=== PATIENT | male | born 1985 | race Caucasian/White ===

== ENCOUNTER → 2017-05-24 | Emergency (ER) | payer SELFPAY ==
[~2017-05-24] VITALS: Ht 177.8 cm; Wt 88.5 kg
[~2017-05-24] MED LIST: CEPH500T PO; CIPR500T4; HYDR-3816; HYDR-3816 PO; HYDROmorphone (DILAUDID) 2 MG/ML VIAL IVP STA; KETOROLAC 30 MG/ML VIAL IVP STA; NS IV 1000 ML 1,000 ML IV ONE; PHENAZOPYRIDINE 100 MG (PYRIDIUM) TABLET PO ONE
[2017-05-24 08:52] LABS: BASOPHILS % (AUTO) 0 % (0-10); EOSINOPHILS # (AUTO) 0.2 10^3/uL (0.0-0.3); EOSINOPHILS % (AUTO) 2 % (0-10); LYMPHOCYTES % (AUTO) 25 % (12-44); MEAN CORPUSCULAR HEMOGLOBIN 30 PG (25-34); MEAN CORPUSCULAR HGB CONC 33 G/DL (32-36); MEAN CORPUSCULAR VOLUME 91 FL (80-99); MEAN PLATELET VOLUME 10.2 FL (7.4-10.4); MONOCYTES # (AUTO) 1.4 X 10^3 (0.0-1.0); MONOCYTES % (AUTO) 12 % (0-12); NEUTROPHILS # (AUTO) 7.3 X 10^3 (1.8-7.8); NEUTROPHILS % (AUTO) 61 % (42-75); PLATELET COUNT 339 10^3/uL (130-400); RED BLOOD COUNT 5.06 10^6/uL (4.35-5.85); RED CELL DISTRIBUTION WIDTH 13.4 % (10.0-14.5)
[2017-05-24 09:15] LABS: BILIRUBIN,URINE NEGATIVE (NEGATIVE); KETONES,URINE NEGATIVE (NEGATIVE); LEUKOCYTE ESTERASE ,URINE NEGATIVE (NEGATIVE); NITRITE,URINE NEGATIVE (NEGATIVE); PH,URINE 7 (5-9); PROTEIN,URINE NEGATIVE (NEGATIVE); UROBILINOGEN,URINE NORMAL (NORMAL)
[2017-05-24 09:16] LABS: ALANINE AMINOTRANSFERASE 23 U/L (0-55); ANION GAP 11 MMOL/L (5-14); ASPARTATE AMINO TRANSFERASE 17 U/L (5-34); BILIRUBIN,TOTAL 0.2 MG/DL (0.1-1.0); BLOOD UREA NITROGEN 14 MG/DL (7-18); BUN/CREATININE RATIO 17; CALCIUM 9.1 MG/DL (8.5-10.1); CARBON DIOXIDE 23 MMOL/L (21-32); CHLORIDE 104 MMOL/L (98-107); CREATININE SERUM 0.81 MG/DL (0.60-1.30); GFR ESTIMATED > 60; GLUCOSE 90 MG/DL (70-105); POTASSIUM 3.9 MMOL/L (3.6-5.0); SODIUM 138 MMOL/L (135-145); TOTAL PROTEIN 7.1 GM/DL (6.4-8.2)
--- NOTE | 2017-05-24 09:18 | ED GU-Male ---
General Chief Complaint: Abdominal/GI Problems Stated Complaint: LT LOWER BACK PAIN Nursing Triage Note: ARRIVED VIA AMB TO ROOM 07. COMPLAINS OF SEVERE LEFT FLANK PAIN STARTING THIS AM WHEN HE WOKE UP. HX OF KIDNEY STONES. Source: patient Exam Limitations: no limitations History of Present Illness Time seen by provider: 08:40 Initial Comments Here with complaint of severe left flank pain that radiates down to the groin and penis. States that he woke up with this pain this morning. Does have history of kidney stones and had lithotripsy earlier this month with stent placement. Stent was removed last week. He was doing okay until this morning. 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 He and his significant other are just passing through [place] today. Denies fevers or chills. Unable to sit still due to severe pain. Timing/Duration: constant Severity/Quality: severe, cramping, sharp Location: left flank Radiation: LLQ, groin Activities at Onset: none Associated Symptoms: abdominal pain, No dysuria, No fever/chills, lower back pain, No nausea/vomiting, No urinary frequency Allergies and Home Medications Allergies Coded Allergies: Penicillins (Verified Allergy, Unknown, 05/24/17) promethazine (Verified Allergy, Unknown, 05/24/17) Home Medications Ciprofloxacin HCl 500 Mg Tablet, #14 (Reported) Hydrocodone/Acetaminophen 1 Each Tablet, #10 (Reported) Constitutional: see HPI, No chills, No fever EENTM: no symptoms reported Respiratory: no symptoms reported Cardiovascular: no symptoms reported Gastrointestinal: abdominal pain, No nausea, No vomiting Genitourinary: flank pain, pain Skin: no symptoms reported All Other Systemes Reviewed Negative Unless Noted: Yes Past Gpkqftu-Wmbqbg-Sbnvfh Hx Patient Social History Alcohol Use: Occasionally Uses Recreational Drug Use: No Smoking Status: Current Everyday Smoker Type Used: Cigarettes Recent Foreign Travel: No Contact w/Someone Who Travel: No Recent Infectious Disease Expo: No Recent Hopitalizations: No Surgeries HX Surgeries: Yes (lithotripsy) Respiratory Hx Respiratory Disorders: No Cardiovascular Hx Cardiac Disorders: No Genitourinary Hx Genitourinary Disorders: Yes Genitourinary Disorders: Kidney Stones Reviewed Nursing Assessment Reviewed/Agree w Nursing PMH: Yes Family Medical History Significant Family History: No Pertinent Family Hx Physical Exam Vital Signs Vital Sign - Last 12Hours 05/24/17 08:38 Temp 98.7 Pulse 111 Resp 18 B/P (MAP) 155/116 Pulse Ox 95 Capillary Refill : Less Than 3 Seconds General Appearance: WD/WN, moderate distress HEENT: PERRL/EOMI, pharynx normal Neck: full range of motion, supple Cardiovascular: no murmur, tachycardia Respiratory: lungs clear Gastrointestinal: non tender, soft Back: normal inspection, no vertebral tenderness, CVA tenderness (L) Extremities: non-tender, normal inspection Neurologic/Psychiatric: alert, oriented x 3 Skin: warm/dry, other (small follicular lesion to the left upper leg with surrounding erythema of 2 x 2 centimeters) Progress/Results/Core Measures Results/Orders Lab Results Laboratory Tests Test 05/24/17 08:45 05/24/17 09:05 Range/Units White Blood Count 12.0 H 4.3-11.0 10^3/uL Red Blood Count 5.06 4.35-5.85 10^6/uL Hemoglobin 15.0 13.3-17.7 G/DL Hematocrit 46 40-54 % Mean Corpuscular Volume 91 80-99 FL Mean Corpuscular Hemoglobin 30 25-34 PG Mean Corpuscular Hemoglobin Concent 33 32-36 G/DL Red Cell Distribution Width 13.4 10.0-14.5 % Platelet Count 339 130-400 10^3/uL Mean Platelet Volume 10.2 7.4-10.4 FL Neutrophils (%) (Auto) 61 42-75 % Lymphocytes (%) (Auto) 25 12-44 % Monocytes (%) (Auto) 12 0-12 % Eosinophils (%) (Auto) 2 0-10 % Basophils (%) (Auto) 0 0-10 % Neutrophils # (Auto) 7.3 1.8-7.8 X 10^3 Lymphocytes # (Auto) 3.0 1.0-4.0 X 10^3 Monocytes # (Auto) 1.4 H 0.0-1.0 X 10^3 Eosinophils # (Auto) 0.2 0.0-0.3 10^3/uL Basophils # (Auto) 0.0 0.0-0.1 10^3/uL Sodium Level 138 135-145 MMOL/L Potassium Level 3.9 3.6-5.0 MMOL/L Chloride Level 104 98-107 MMOL/L Carbon Dioxide Level 23 21-32 MMOL/L Anion Gap 11 5-14 MMOL/L Blood Urea Nitrogen 14 7-18 MG/DL Creatinine 0.81 0.60-1.30 MG/DL Estimat Glomerular Filtration Rate > 60 BUN/Creatinine Ratio 17 Glucose Level 90 70-105 MG/DL Calcium Level 9.1 8.5-10.1 MG/DL Total Bilirubin 0.2 0.1-1.0 MG/DL Aspartate Amino Transf (AST/SGOT) 17 5-34 U/L Alanine Aminotransferase (ALT/SGPT) 23 0-55 U/L Alkaline Phosphatase 82 40-136 U/L Total Protein 7.1 6.4-8.2 GM/DL Albumin 4.0 3.2-4.5 GM/DL Urine Color YELLOW Urine Clarity CLEAR Urine pH 7 5-9 Urine Specific Protivin 1.010 L 1.016-1.022 Urine Protein NEGATIVE NEGATIVE Urine Glucose (UA) NEGATIVE NEGATIVE Urine Ketones NEGATIVE NEGATIVE Urine Nitrite NEGATIVE NEGATIVE Urine Bilirubin NEGATIVE NEGATIVE Urine Urobilinogen NORMAL NORMAL MG/DL Urine Leukocyte Esterase NEGATIVE NEGATIVE Urine RBC (Auto) 5+ H NEGATIVE Urine RBC 25-50 H /HPF Urine WBC RARE /HPF Urine Squamous Epithelial Cells NONE /HPF Urine Crystals NONE /LPF Urine Bacteria NEGATIVE /HPF Urine Casts NONE /LPF Urine Mucus NEGATIVE /LPF Urine Culture Indicated NO My Orders Orders - HARMONY DOYLE MD Cbc With Automated Diff (05/24/17 08:45) Comprehensive Metabolic Panel (05/24/17 08:45) Ua Culture If Indicated (05/24/17 08:45) Saline Lock/Iv-Start (05/24/17 08:45) Ketorolac Injection (Toradol Injection) (05/24/17 08:45) Hydromorphone Injection (Dilaudid Inject (05/24/17 08:45) Ct Abd/Pelvis Wo(Kidney Stone) (05/24/17 08:45) Ns Iv 1000 Ml (Sodium Chloride 0.9%) (05/24/17 08:48) Hydromorphone Injection (Dilaudid Inject (05/24/17 09:34) Phenazopyridine Tablet (Pyridium Tablet) (05/24/17 10:15) Medications Given in ED Current Medications Medications Dose Ordered Sig/Stefano Route Start Time Stop Time Status Last Admin Dose Admin Sodium Chloride 1,000 ml @ 0 mls/hr Q0M ONCE IV 05/24/17 08:48 05/24/17 08:49 DC 05/24/17 08:52 1,000 MLS/HR Vital Signs/I&O Vital Sign - Last 12Hours 05/24/17 08:38 Temp 98.7 Pulse 111 Resp 18 B/P (MAP) 155/116 Pulse Ox 95 Blood Pressure Mean: 129 Progress Note : Progress Note Seen and evaluated. IV, labs and UA ordered. Dilaudid 1 mg IV and Toradol 30 mg IV ordered. Normal saline [address] abdomen and pelvis kidney stone protocol ordered. Monitor patient. 929: Patient accidentally pulled out his IV. Patient still in pain. Repeat Dilaudid 1 mg IV. Pending kidney stone study. 1005: Overall improved. Peridium 100 mg by mouth given. Patient is not getting go back to [place] follow-up with his urologist. I will initiate Keflex as patient did show me a wound on his leg and we will field cover the urinary tract with that as well. Discharged home with return precautions. Patient verbalize understanding instructions and agreement with plan. Patient reports being able to take Keflex without problems in the past. Diagnostic Imaging Diagonstic Imaging: CT Plain Films/CT/US/NM/MRI: abdomen, pelvis Comments NAME: ANTONIETA RON [facility] REC#: [id number] PT STATUS: REG ER : 1985 PHYSICIAN: HARMONY DOYLE MD ADMIT DATE: 05/24/17/ER Signed Date of Exam: 05/24/17 CT ABD/PELVIS WO(KIDNEY STONE) PROCEDURE: CT urinary tract, rule out kidney stone. TECHNIQUE: Multiple contiguous axial images were obtained through the abdomen and pelvis without the use of intravenous contrast. INDICATION: Persistent pain. Recent lithotripsy. COMPARISON: None. FINDINGS: The lung bases are clear. The liver, gallbladder, pancreas, spleen, and adrenal glands appear unremarkable. There is a punctate nonobstructive calculus in the mid right kidney. There is a 5 mm stone in the inferior left kidney. There is minimal pelviectasis of the left kidney. No ureteral stone is demonstrated. The bladder appears unremarkable. The appendix appears normal. No evidence of bowel obstruction or focal inflammatory process. There is no ascites or free air. No adenopathy is demonstrated. The abdominal aorta appears normal in caliber. No acute osseous abnormality is suspected. IMPRESSION: 1. There is a 5 mm stone in the inferior left kidney. There is mild left pelviectasis. Nonobstructive right nephrolithiasis. 2. No additional significant abnormality is demonstrated. Dictated by: Dictated on workstation # [id number] Dict: 05/24/17925 Trans: 05/24/17937 Interpreted by: BRIANNA KITCHEN DO Electronically signed by: BRIANNA KITCHEN DO 05/24/17937 Departure Impression Impression: Primary Impression: Renal colic on left side Additional Impression: Folliculitis Disposition: 01 HOME, SELF-CARE Condition: Stable Departure-Patient Inst. Decision time for Depature: 10:09 Referrals: NO,LOCAL PHYSICIAN (PCP/Family) Primary Care Physician Patient Instructions: Folliculitis (DC), Renal Colic (DC) Add. Discharge Instructions: All discharge instructions reviewed with patient and/or family. Voiced understanding. Take medications as directed. Follow-up with your Dr. in recheck in a few days. Return for worse pain, fever, vomiting, weakness, breathing problems or other concerns as needed. You may take ibuprofen 800 mg every 8 hours as needed for pain. Drink plenty of fluids. You may use triple antibiotic ointment and a Band-Aid over the wound a leg twice daily as needed until healing or healed. Scripts Hydrocodone/Acetaminophen (Hydrocodon-Acetaminoph 7.5-325) 1 Each Tablet 1 EACH PO Q6H, #8 TAB 0 Refills Prov: HARMONY DOYLE MD 05/24/17 Cephalexin (Cephalexin) 500 Mg Tablet 500 MG PO TID, #21 TAB 0 Refills Prov: HARMONY DOYLE MD 05/24/17 HARMONY DOYLE MD May 24, 2017 09:18
[2017-05-24 09:25] LABS: WBC,URINE RARE /HPF
--- NOTE | 2017-05-24 09:38 | Diagnostic Imaging Report ---
PROCEDURE: CT urinary tract, rule out kidney stone. TECHNIQUE: Multiple contiguous axial images were obtained through the abdomen and pelvis without the use of intravenous contrast. INDICATION: Persistent pain. Recent lithotripsy. COMPARISON: None. FINDINGS: The lung bases are clear. The liver, gallbladder, pancreas, spleen, and adrenal glands appear unremarkable. There is a punctate nonobstructive calculus in the mid right kidney. There is a 5 mm stone in the inferior left kidney. There is minimal pelviectasis of the left kidney. No ureteral stone is demonstrated. The bladder appears unremarkable. The appendix appears normal. No evidence of bowel obstruction or focal inflammatory process. There is no ascites or free air. No adenopathy is demonstrated. The abdominal aorta appears normal in caliber. No acute osseous abnormality is suspected. IMPRESSION: 1. There is a 5 mm stone in the inferior left kidney. There is mild left pelviectasis. Nonobstructive right nephrolithiasis. 2. No additional significant abnormality is demonstrated. Dictated by: Dictated on workstation # [id number]
[2017-05-24 10:30] VITALS: BP 169/111
== END | disposition home or self-care (01) ==
LOC: ER 08:39
DX: N23 Unspecified renal colic (principal); L73.9 Follicular disorder, unspecified; F17.210 Nicotine dependence, cigarettes, uncomplicated; Z87.442 Personal history of urinary calculi
CPT/HCPCS: 36415; 74176; 80053; 81000; 85025; 96361; 96374; 96375; 96376